=== PATIENT | male | born 1935 | race Two or more races ===

== ENCOUNTER 2017-02-28 09:55 | Outpatient (CLI) | payer OTHER ==
[~2017-02-28 09:55] MED LIST: AVODART0.5 MG PO; ECOTRIN81 MG PO; TAMS0.4C PO
== END 2017-02-28 10:09 | disposition home or self-care (01) ==
LOC: SONOGRAMA 09:55
DX: M25.511 Pain in right shoulder (principal)
CPT/HCPCS: 73218

== ENCOUNTER 2020-02-11 14:00 | Emergency (ER) | payer OTHER ==
[~2020-02-11] VITALS: Ht 162.6 cm; Wt 60.8 kg
[2020-02-11] MEDS ORDERED: INDERAL LA80 MG (14:22)
[2020-02-11] MEDS ORDERED: ANTIVER (14:22)
[2020-02-11] MEDS ORDERED: ITCH RELIEF15 G1 (14:23)
== END 2020-02-11 18:47 | disposition home or self-care (01) ==
LOC: ER 14:00
DX: D70.8 Other neutropenia (principal); R50.81 Fever presenting with conditions classified elsewhere; Z03.818 Encounter for observation for suspected exposure to other biological agents ruled out

== ENCOUNTER 2021-08-14 15:54 | Emergency (ER) | payer OTHER ==
[~2021-08-14] VITALS: Ht 165.1 cm; Wt 62.6 kg
[~2021-08-14 15:54] MED LIST changes: +ANTIVER; +INDERAL LA80 MG; +ITCH RELIEF15 G1
== END 2021-08-14 17:31 | disposition home or self-care (01) ==
LOC: ER 15:54
DX: S01.81XA Laceration without foreign body of other part of head, initial encounter (principal); W19.XXXA Unspecified fall, initial encounter; Y93.89 Activity, other specified; Y92.89 Other specified places as the place of occurrence of the external cause; Z91.013 Allergy to seafood

== ENCOUNTER 2021-08-24 09:03 | Emergency (ER) | payer OTHER ==
[~2021-08-24] VITALS: Ht 167.6 cm; Wt 62.6 kg
[2021-08-24] MEDS ORDERED: AVODART0.5 MG PO (09:36)
[2021-08-24] MEDS ORDERED: DRAMAMINE LESS25 MG PO (09:36)
== END 2021-08-24 10:52 | disposition home or self-care (01) ==
LOC: ER 09:03
DX: Z48.02 Encounter for removal of sutures (principal); Z91.013 Allergy to seafood